=== PATIENT | male | born 1955 | race Caucasian/White ===

== ENCOUNTER 2018-10-01 10:51 | Inpatient (IN) | payer MEDICARE, OTHER ==
--- NOTE | 2018-10-01 11:13 | ED Physician Chart ---
ED Chief Complaint/HPI - Patient Information Date Seen:: 10/01/18 Time Seen:: 11:00 Chief Complaint:: Agitation History of Present Illness:: onset x 2 days of agitation and aggressive behavior; no report of trauma, SIs, H /As, S/T, neck pain, C/P, SOB, Abd. Pain, A/N/V/D/C, fever, chills, or urinary s /s Allergies:: Allergies Allergy/AdvReac Type Severity Reaction Status Date / Time No Known Allergies Allergy Verified 10/01/18 11:03 Historian:: Patient, EMS Review:: Nurse's Note Reviewed, Old Chart Reviewed, EMS run form Reviewed ED Review of Systems - Review of Systems General/Constitutional: No fever, No chills, No weight loss, No weakness, No diaphoresis, No edema, No loss of appetite Skin: No skin lesions, No rash, No bruising Head: No headache, No light-headedness Eyes: No loss of vision, No pain, No diplopia ENT: No earache, No nasal drainage, No sore throat, No tinnitus Neck: No neck pain, No swelling, No thyromegaly, No stiffness, No mass noted Cardio Vascular: No chest pain, No palpitations, No PND, No orthopnea, No edema Pulmonary: No SOB, No cough, No sputum, No wheezing GI: No nausea, No vomiting, No diarrhea, No pain, No melena, No hematochezia, No constipation, No hematemesis G/U: No dysuria, No frequency, No hematuria, No nacturia Musculoskeletal: No bone or joint pain, No back pain, No muscle pain Endocrine: No polyuria, No polydipsia Psychiatric: Prior psych history, Depression, Anxiety, No suicidal ideation, No homicidal ideation, No auditory hallucination, No visual hallucination Hematopoietic: No bruising, No lymphadenopathy Allergic/Immuno: No urticaria, No angioedema Neurological: No syncope, No focal symptoms, No weakness, No paresthesia, No headache, No seizure, No dizziness, No confusion, No vertigo ED Past Medical History - Past Medical History Obtainable: Yes Past Medical History: HTN, DM, Dyslipidemia, PUD/GERD, Thyroid disorder Family History: Diabetes Melitus, HTN Social History: Non Smoker, No Alcohol, No Drug Use, Single, Care Facility Surgical History: None Psychiatricy History: Bipolar Medication: Reviewed ED Physical Exam - Physical Examination General/Constitutional: Awake, Well-developed, well-nourished, Alert, No distress, GCS 15, Non-toxic appearing, Ambulatory Head: Atraumatic Eyes: Lids, conjuctiva normal, PERRL, EOMI Skin: Nl inspection, No rash, No skin lesions, No ecchymosis, Well hydrated, No lymphadenopathy ENMT: External ears, nose nl, TM canals nl, Nasal exam nl, Lips, teeth, gums nl , Oropharynx nl, Tonsils nl Neck: Nontender, Full ROM w/o pain, No JVD, No nuchal rigidity, No bruit, No mass, No stridor Respiratory: Nl effort/Exclusion, Clear to Auscultation, No Wheeze/Rhonchi/Rales Cardio Vascular: RRR, No murmur, gallop, rubs, NL S1 S2, Carotid/Femoral/Distal pulses equal bilaterally GI: No tenderness/rebounding/guarding, No organomegaly, No hernia, Normal BS's, Nondistended, No mass/bruits, No McBurney tenderness : No CVA tenderness Extremities: No tenderness or effusion, Full ROM, normal strength in all extremities, No edema, Normal digits & nails Neuro/Psych: Alert/oriented, DTR's symmetric, Normal sensory exam, Normal motor strength, Judgement/insight normal, Mood normal, Normal gait, No focal deficits Other Neuro/Psych comments:: + Psychomotor Agitation; no SIs; Mood/Affect: Labile Misc: Normal back, No paraspinal tenderness ED Labs/Radiology/EKG Results - Lab Results Comments:: deferred by pt - Radiology Results Comments:: deferred by pt - EKG Interpretations Comments:: deferred by pt ED Septic Shock - . Is Septic Shock (SBP<90, OR Lactate>4 mmol\L) present?: No ED Reassessment (Disposition) - Reassessment Reassessment Condition:: Improved - Diagnosis Diagnosis:: Agitation; Medical Clearance; Psychosis; Bipolar Disorder - Aftercare/Follow up Instructions Aftercare/Follow-Up Instructions:: Counseled pt regarding lab results/diagnosis & need follow up, Counseled pt & family regarding lab results/diagnosis & need follow up - Patient Disposition Discharge/Transfer:: Acute Care w/in this hosp Admitted to:: [facility] Condition at Disposition:: Stable, Improved
[2018-10-01] MEDS ORDERED: Maalox 30 mL Cup PO PRN (12:10)
[2018-10-01] MEDS ORDERED: Magnesium Hydroxide (MOM) 30 mL UDC PO PRN (12:10)
[2018-10-02] MEDS: Levothyroxine 0.1 Mg Tab PO SCH (06:43)
[2018-10-02] MEDS ORDERED: LACTULOSE PO SCH (09:00)
[2018-10-02] MEDS ORDERED: Multivitamin w/ Minerals Tab PO SCH (09:00)
[2018-10-02] MEDS: Multivitamin Tab PO SCH ×2 (10:04→10:40)
[2018-10-02] MEDS: Ferrous Sulfate 325 MG TAB PO SCH ×3 (10:04→17:52)
[2018-10-02] MEDS: Lactulose 10 Gm/15 mL 30mL UDC PO SCH (10:37)
--- NOTE | 2018-10-02 11:55 | Consultation ---
DATE OF CONSULTATION: 10/02/2018 CHIEF COMPLAINT: "They sent me here." HISTORY OF PRESENT ILLNESS: The patient is a 62-year-old male with a history of mental illness who was sent from his usp facility, [facility], was followed by the video game script writer, has been becoming more anxious, guarded, paranoia, thinking that demons are following him. The patient has not been compliant with his medications and is becoming more restless and anxious and becoming more angry and difficult to redirect by staff. PAST PSYCHIATRIC HISTORY: Multiple hospitalizations and history of schizophrenia. PAST MEDICAL HISTORY: Medically cleared in the Emergency Room, has a history of kidney disease, hypothyroidism, and hypertension. PSYCHOSOCIAL HISTORY: The patient resides at [facility] and requires complete care. MENTAL STATUS EXAMINATION: Speech is fluent, loud at times. Affect is dysphoric, irritable. The patient appears to be paranoia, suspicious. The patient denies hearing voices. He is oriented to person being in the hospital and in the hospital, he knows his age, cooperative with the rest of memory testing. The patient's strength is the patient is passively accepting treatment. The patient's weakness is lack of insight. ASSESSMENT: Schizophrenia, paranoia type. MEDICAL: As in medical history. Stressors severe. PLAN: We will admit the patient for hospitalization. We will start to resume group therapy and assess psychopharmacological intervention. ESTIMATED LENGTH OF STAY: 7 days. DISCHARGE CRITERIA: Improved condition. No psychosis, no agitation. Safe disposition, outpatient treatment plan. JOB# [id number]
[2018-10-03] MEDS: Levothyroxine 0.1 Mg Tab PO SCH (06:33)
--- NOTE | 2018-10-03 08:45 | Internal Medicine Prog Note ---
Internal Medicine Subjective - Subjective Patient seen and examined:: chart reviewed Patient is:: awake, other (anxious, paranoid ) Per staff patient has:: no adverse event Internal Medicine Objective - Physical Exam Vitals and I&O: Vital Signs Temp 98.2 F 10/03/18 06:27 Pulse 70 10/03/18 06:27 Resp 20 10/03/18 06:27 BP 122/85 10/03/18 06:27 Pulse Ox 97 10/03/18 06:27 Intake & Output 10/02/18 10/03/18 10/03/18 18:59 06:59 18:59 Intake Total 900 120 Balance 900 120 Intake: Oral 900 120 Other: # Voids 3 2 # Bowel Movements 1 Active Medications: Current Medications Acetaminophen (Tylenol) 650 mg PO Q4HR PRN PRN Reason: Mild Pain / Temp above 100 Stop: 11/30/18 12:09 Al Hydrox/Mg Hydrox/Simethicone (Maalox) 30 ml PO Q4HR PRN PRN Reason: GI DISTRESS Stop: 11/30/18 12:09 Ascorbic Acid (Vitamin C) 500 mg PO DAILY [facility] Stop: 12/01/18 08:59 Last Admin: 10/02/18 10:38 Dose: Not Given Atorvastatin Calcium (Lipitor) 40 mg PO HS [facility] Stop: 12/01/18 20:59 Last Admin: 10/02/18 21:13 Dose: Not Given Carvedilol (Coreg) 12.5 mg PO BID [facility] Stop: 12/01/18 08:59 Last Admin: 10/02/18 17:52 Dose: Not Given Docusate Sodium (Colace) 100 mg PO BID [facility] Stop: 12/01/18 08:59 Last Admin: 10/02/18 17:52 Dose: Not Given Famotidine (Pepcid) 20 mg PO BID [facility] Stop: 12/01/18 08:59 Last Admin: 10/02/18 17:52 Dose: Not Given Ferrous Sulfate (Iron) 325 mg PO BID [facility] Stop: 12/01/18 08:59 Last Admin: 10/02/18 17:52 Dose: Not Given Finasteride (Proscar) 5 mg PO DAILY [facility]; Protocol Stop: 12/01/18 08:59 Last Admin: 10/02/18 10:39 Dose: Not Given Glipizide (Glucotrol) 10 mg PO DAILY [facility] Stop: 12/01/18 08:59 Last Admin: 10/02/18 10:37 Dose: Not Given Lactulose (Cephulac) 40 gm PO DAILY [facility] Stop: 12/01/18 08:59 Last Admin: 10/02/18 10:37 Dose: Not Given Lamotrigine (Lamictal) 100 mg PO HS [facility]; Protocol Stop: 11/30/18 20:59 Last Admin: 10/02/18 21:13 Dose: Not Given Levothyroxine Sodium (Synthroid) 0.1 mg PO QDAC [facility] Stop: 12/01/18 07:29 Last Admin: 10/03/18 06:33 Dose: Not Given Lorazepam (Ativan) 0.5 mg PO Q4HR PRN; Protocol PRN Reason: Anxiety Stop: 11/30/18 12:30 Magnesium Hydroxide (Milk Of Magnesia) 30 ml PO HS PRN PRN Reason: Constipation Multivitamins/Vitamin C (Theragran) 1 tab PO DAILY [facility] Stop: 12/01/18 08:59 Last Admin: 10/02/18 10:40 Dose: Not Given Olanzapine (Zyprexa) 10 mg PO DAILY [facility]; Protocol Stop: 12/01/18 08:59 Last Admin: 10/02/18 10:37 Dose: Not Given Quetiapine Fumarate (Seroquel Xr) 400 mg PO [facility] Stop: 11/30/18 20:59 Last Admin: 10/02/18 21:13 Dose: Not Given Tamsulosin HCl (Flomax) 0.4 mg PO BID [facility] Stop: 12/01/18 08:59 Last Admin: 10/02/18 17:52 Dose: Not Given Trazodone HCl (Desyrel) 50 mg PO [facility]; Protocol Stop: 11/30/18 20:59 Last Admin: 10/02/18 21:13 Dose: Not Given Zolpidem Tartrate (Ambien) 5 mg PO HS PRN PRN Reason: Insomnia Stop: 11/30/18 12:09 General: demented HEENT: NC/AT Neck: Supple Lungs: CTAB, congested Cardiovascular: Normal S1, Normal S2 Abdomen: soft, non-tender Extremities: clear, edema Neurological: no change Internal Medicine Assmt/Plan - Assessment Assessment: schizophrenia paranoia - Plan Plan: as per psych will monitor
[2018-10-03] MEDS: Ferrous Sulfate 325 MG TAB PO SCH ×2 (10:41→17:46)
[2018-10-03] MEDS: Lactulose 10 Gm/15 mL 30mL UDC PO SCH (10:41)
[2018-10-03] MEDS: Multivitamin Tab PO SCH (10:42)
--- NOTE | 2018-10-03 22:58 | Consultation ---
DATE OF CONSULTATION: 10/03/2018 REFERRING PHYSICIAN: Julianna Montano M.D. TYPE OF CONSULTATION: Psychology. HISTORY OF PRESENT ILLNESS: The patient is a 62-year-old male. The following is by review of the medical record as well as by the patient's self-report. According to record, the patient was seen originally by Dr. Castro at the patient's shelter facility. The patient is reported to have been noncompliant with his medications and becoming restless and anxious as well as easily agitated and difficult to redirect. Therefore, he was transferred here to the geropsychiatric unit and recommended for stabilization. Upon interview, the patient presents as guarded as well as anxious. The patient denied any suicidal ideation, plan or intention at the time of the clinical interview. The patient was selectively mute at times and reluctant to answer some of the clinical interview questions. PAST MEDICAL HISTORY: Please see history and physical by Dr. Guan. PAST PSYCHIATRIC HISTORY: The patient has a history of multiple previous psychiatric hospitalizations and a long history of schizophrenia, chronic paranoid type. The patient is under the care of Dr. Castro at his placement. SUBSTANCE ABUSE HISTORY: The patient did not answer these questions. PSYCHOSOCIAL HISTORY: The patient lives at [facility]. The patient did not answer questions about occupational or educational history or oriental orthodox affiliation. The patient did not answer questions about history of physical or sexual abuse or current legal problems. The patient did not answer questions about family involvement in his care or any type of support system other than his medical providers. MENTAL STATUS EXAMINATION: The patient appears to be his stated age. The patient's attitude is guarded. Eye contact is poor. Speech is selectively mute at times and at other times loud. Mood is irritable. Affect is constricted. There seems to be some paranoid ideation. Thought process shows to be somewhat disorganized. The patient denied any auditory or visual hallucinations. The patient denies any suicidal ideation, plan or intention. The patient's behavior has been redirectable on the unit according to the staff. Impulse control is limited. Concentration is poor possibly due to the interference of psychotic process. The patient did not participate in the memory assessment. Sensorium is alert and oriented to person and place. The patient did not participate in the interpretation of proverbs. Insight is poor. Judgment is impaired. DIAGNOSTIC IMPRESSION: AXIS I: History of schizophrenia, chronic paranoid type. AXIS II: Deferred. AXIS III: Per Dr. Guan. TREATMENT PLAN: The patient has been seen by Dr. Castro for psychiatric evaluation and for the management of the patient's psychotropic medications. Please see the initial psychiatric evaluation for pharmacological interventions. We will provide supportive psychotherapy to include reality orientation, differentiation, and integration. We will provide coping strategies for chronic severe mental illness as well as phase of life issues. We will encourage the patient to be able to demonstrate emotional and self-regulation prior to discharge. We will provide motivational enhancement for the patient to become compliant and stay compliant with all aspects of his care and treatment as well as a specific focus on the patient becoming compliant with his medication. We will continue to provide supportive therapy throughout the patient's stay. Thank you, Dr. Castro and Dr. Montano, for this consult and the opportunity to participate in this patient's care. JOB# [id number] [facility]
--- NOTE | 2018-10-04 06:16 | Progress Notes ---
DATE: 10/03/2018 SUBJECTIVE: The patient was seen, remains anxious, irritable, still refusing care at times, refusing medications, said he does not need medications and ____. MENTAL STATUS EXAM: Speech fluent, not pressured. Affect is dysphoric. The patient remains paranoid. Memory, calculation and fund of knowledge remain impaired. ASSESSMENT: The patient still in psychotic phase, highly paranoid. PLAN: Continue stabilization, encourage the patient to comply with treatment. The patient is prescribed Zyprexa. Consider ____. JOB# [id number]
[2018-10-04] MEDS: Levothyroxine 0.1 Mg Tab PO SCH (06:41)
[2018-10-04] MEDS: Lactulose 10 Gm/15 mL 30mL UDC PO SCH (09:44)
[2018-10-04] MEDS: Ferrous Sulfate 325 MG TAB PO SCH ×2 (09:44→16:36)
[2018-10-04] MEDS: Multivitamin Tab PO SCH (09:45)
--- NOTE | 2018-10-04 09:48 | History & Physical ---
ADMIT DATE: 10/01/2018 CHIEF COMPLAINT: Agitation, paranoia and anxiety. HISTORY OF PRESENT ILLNESS: This is a 62-year-old male who was admitted from a halfway facility to [facility] due to increase in agitation, paranoia. REVIEW OF SYSTEMS: GENERAL: This is a 62-year-old male that appears as stated. Denies fever. Denies weakness. EYES: Denies eye pain. Denies blurring vision. NECK: Denies any neck pain. Denies nuchal rigidity. CHEST: Denies chest pain. Denies palpitation. PULMONARY: Denies coughing and shortness of breath. GASTROINTESTINAL: Denies abdominal pain. Denies constipation. Denies diarrhea. MUSCULOSKELETAL: Denies joint pain. Denies muscle pain. SOCIAL HISTORY: The patient lives in a halfway facility prior to hospitalization. FAMILY HISTORY: Unremarkable. PAST SURGICAL HISTORY: Unremarkable. PSYCHIATRIC HISTORY: Includes schizophrenia. PAST MEDICAL HISTORY: Hypertension, hyperlipidemia, gastroesophageal reflux disease, benign prostatic hypertrophy, iron deficiency anemia, diabetes mellitus. PHYSICAL EXAMINATION: VITAL SIGNS: Temperature 97.8, heart rate 74, blood pressure 134/64, respirations 20, 97% on room air. GENERAL: This is a 62-year-old male that appears as stated in no acute distress. HEENT: Head is atraumatic and normocephalic. Eyes: Bilateral conjunctivae are clear. Bilateral pupils are equally round and reactive. NECK: Supple. No JVD. CARDIOVASCULAR: S1 and S2, without murmur. PULMONARY: Clear to auscultation. GASTROINTESTINAL: Soft and nontender without guarding. Positive bowel sounds. MUSCULOSKELETAL: No clubbing. No cyanosis noted. ASSESSMENT: 1. Paranoid schizophrenia. 2. Hyperlipidemia. 3. Hypertension. 4. Gastroesophageal reflux disease. 5. Iron deficiency anemia. 6. Benign prostatic hypertrophy. 7. Diabetes mellitus. 8. Hypothyroidism. PLAN: We will admit the patient to Psychiatric Unit. We will follow up with the psychiatrist to monitor the patient's condition and behavior. We will do medication reconciliation accordingly. Treatment plans were discussed with the patient's nurse. Treatment plans were discussed with Dr. Guan. JOB# [id number]
--- NOTE | 2018-10-04 18:42 | Progress Notes ---
DATE: 10/04/2018 TIME: 10:00 a.m. CHIEF COMPLAINT: Psychotic illness. SUBJECTIVE: The patient was seen, remains anxious, guarded, still argumentative, refusing medications. MENTAL STATUS EXAM: Speech is minimal, short sentences. Affect is constricted. The patient remains paranoid, still responding to internal stimuli. He is oriented to time, place and person. ASSESSMENT: The patient in psychotic phase. PLAN: Continue stabilization. Encourage the patient to comply with treatment. The patient is on Zyprexa. The patient states he does not take it because he does not need any medication or he does not do anything. Consider Riese process. Discontinue Zyprexa, use Haldol 2.5 mg p.o. b.i.d., Cogentin 1 mg p.o. b.i.d. JOB# [id number]
[2018-10-05] MEDS: Levothyroxine 0.1 Mg Tab PO SCH (06:35)
[2018-10-05] MEDS: Ferrous Sulfate 325 MG TAB PO SCH ×2 (09:21→17:20)
[2018-10-05] MEDS: Multivitamin Tab PO SCH (09:22)
[2018-10-05] MEDS: Lactulose 10 Gm/15 mL 30mL UDC PO SCH (09:22)
--- NOTE | 2018-10-05 11:29 | Internal Medicine Prog Note ---
Internal Medicine Subjective - Subjective Patient seen and examined:: chart reviewed Patient is:: awake, other (anxious, paranoid , no signs of pain ) Per staff patient has:: no adverse event Internal Medicine Objective - Physical Exam Vitals and I&O: Vital Signs Temp 97.9 F 10/04/18 20:58 Pulse 98 10/04/18 20:58 Resp 20 10/04/18 20:58 BP 159/82 10/04/18 20:58 Pulse Ox 98 10/04/18 20:58 Intake & Output 10/04/18 10/05/18 10/05/18 18:59 06:59 18:59 Intake Total 1500 480 Balance 1500 480 Intake: Oral 1500 480 Other: # Voids 2 3 # Bowel Movements 0 Active Medications: Current Medications Acetaminophen (Tylenol) 650 mg PO Q4HR PRN PRN Reason: Mild Pain / Temp above 100 Stop: 11/30/18 12:09 Al Hydrox/Mg Hydrox/Simethicone (Maalox) 30 ml PO Q4HR PRN PRN Reason: GI DISTRESS Stop: 11/30/18 12:09 Ascorbic Acid (Vitamin C) 500 mg PO DAILY [facility] Stop: 12/01/18 08:59 Last Admin: 10/05/18 09:21 Dose: Not Given Atorvastatin Calcium (Lipitor) 40 mg PO HS [facility] Stop: 12/01/18 20:59 Last Admin: 10/04/18 20:44 Dose: Not Given Benztropine Mesylate (Cogentin) 1 mg PO BID [facility] Stop: 12/03/18 16:59 Last Admin: 10/05/18 09:21 Dose: Not Given Carvedilol (Coreg) 12.5 mg PO BID [facility] Stop: 12/01/18 08:59 Last Admin: 10/05/18 09:21 Dose: Not Given Docusate Sodium (Colace) 100 mg PO BID [facility] Stop: 12/01/18 08:59 Last Admin: 10/05/18 09:21 Dose: Not Given Famotidine (Pepcid) 20 mg PO BID [facility] Stop: 12/01/18 08:59 Last Admin: 10/05/18 09:21 Dose: Not Given Ferrous Sulfate (Iron) 325 mg PO BID [facility] Stop: 12/01/18 08:59 Last Admin: 10/05/18 09:21 Dose: Not Given Finasteride (Proscar) 5 mg PO DAILY [facility]; Protocol Stop: 12/01/18 08:59 Last Admin: 10/05/18 09:21 Dose: Not Given Glipizide (Glucotrol) 10 mg PO DAILY [facility] Stop: 12/01/18 08:59 Last Admin: 10/05/18 09:22 Dose: Not Given Haloperidol (Haldol) 2.5 mg PO BID [facility]; Protocol Stop: 12/03/18 16:59 Last Admin: 10/05/18 09:22 Dose: Not Given Lactulose (Cephulac) 40 gm PO DAILY [facility] Stop: 12/01/18 08:59 Last Admin: 10/05/18 09:22 Dose: Not Given Lamotrigine (Lamictal) 100 mg PO HS [facility]; Protocol Stop: 11/30/18 20:59 Last Admin: 10/04/18 20:44 Dose: Not Given Levothyroxine Sodium (Synthroid) 0.1 mg PO QDAC [facility] Stop: 12/01/18 07:29 Last Admin: 10/05/18 06:35 Dose: Not Given Lorazepam (Ativan) 0.5 mg PO Q4HR PRN; Protocol PRN Reason: Anxiety Stop: 11/30/18 12:30 Magnesium Hydroxide (Milk Of Magnesia) 30 ml PO HS PRN PRN Reason: Constipation Multivitamins/Vitamin C (Theragran) 1 tab PO DAILY [facility] Stop: 12/01/18 08:59 Last Admin: 10/05/18 09:22 Dose: Not Given Tamsulosin HCl (Flomax) 0.4 mg PO BID [facility] Stop: 12/01/18 08:59 Last Admin: 10/05/18 09:22 Dose: Not Given Trazodone HCl (Desyrel) 50 mg PO HS [facility]; Protocol Stop: 11/30/18 20:59 Last Admin: 10/04/18 20:44 Dose: Not Given Zolpidem Tartrate (Ambien) 5 mg PO HS PRN PRN Reason: Insomnia Stop: 11/30/18 12:09 General: demented HEENT: NC/AT Neck: Supple Lungs: CTAB, congested Cardiovascular: Normal S1, Normal S2 Abdomen: soft, non-tender Extremities: clear, edema Neurological: no change Internal Medicine Assmt/Plan - Assessment Assessment: schizophrenia paranoia - Plan Plan: as per psych will monitor Nutritional Asmnt/Malnutr-PDOC - Dietary Evaluation Malnutrition Findings (Please click <Entered> for more info): Nutritional Asmnt/Malnutrition Start: 10/03/18 10: 52 Text: Status: Complete Freq: Protocol: Document 10/04/18 11:05 LEONEL (Rec: 10/04/18 11:21 LEONEL SHORTN- [email or web address]) Nutritional Asmnt/Malnutrition Patient General Information Diagnosis psychosis nos Pertinent Medical Hx/Surgical Hx schizophrenia Subjective Information Pt asleep at time of visit Current Diet Order/ Nutrition Support renal and cardiac mechanical soft diet Pertinent Medications maalox, vit C, lipitor, colace , pepcid, Fe, gluctrol, lactulose, synthroid, MOM, theragran Pertinent Labs none note Nutritional Hx/Data Height 1.63 m Height (Calculated Centimeters) 162.6 Current Weight (lbs) 145.15 kg Weight (Calculated Kilograms) 145.1 Weight (Calculated Grams) 016036.6 Body Mass Index (BMI) 54.9 Weight Status Obese GI Symptoms GI Symptoms None Last BM 10/03 Cultural/Ethnic/Roman Catholic Belief unknown Usual diet at home unknown Skin Integrity/Comment: wilda score 22 Current %PO Good (75-100%) Estimated Nutritional Goals BEE in Kcals: Adj wt of IBW Calories/Kcals/Kg 25-30kcals/kg Kcals Calculated 1925-2310kcals/day Protein: Adj wt of IBW Protein g/k.2-1.3g/kg Protein Calculated 92-100g/day Fluid: ml 1925-2310ml/day (1ml/kcal) Nutritional Problem 1. Problem Problem No nutrition diagnosis at this time Intervention/Recommendation Comments Recommend continuing renal and cardiac mechanical soft diet Expected Outcomes/Goals Expected Outcomes/Goals PO intake >75% of meals
[2018-10-05] MEDS ORDERED: Haloperidol Lactate 5 mg/mL 1mL Vial IM ONE (14:08)
[2018-10-05] MEDS ORDERED: Haloperidol Lactate 5 mg/mL 1mL Vial ONE (14:10)
--- NOTE | 2018-10-06 04:18 | Progress Notes ---
DATE: 10/05/2018 PSYCHIATRIC PROGRESS NOTE SUBJECTIVE: Staff was spoken to. The patient is very agitated and pacing most of the time on the unit, but at the same time refusing to comply with the treatment. Insight and judgment at this time are noted to be still impaired. Impulse control is noted to be limited. The patient has been very intrusive. The patient has been advised to be on the current medications and refuses. The patient has been given the option of taking the antianxiety medication such as Ativan or Xanax, but the patient refuses to do so. ASSESSMENT: The patient is still impulsive and agitated. PLAN: To encourage the patient to continue with the medications and the patient continues to do so. The patient is going to be possibly placed on the Riese hearing tomorrow. JOB# [id number]
[2018-10-06] MEDS: Levothyroxine 0.1 Mg Tab PO SCH (07:04)
[2018-10-06] MEDS: Multivitamin Tab PO SCH (08:20)
[2018-10-06] MEDS: Ferrous Sulfate 325 MG TAB PO SCH ×2 (08:20→17:32)
[2018-10-06] MEDS: Lactulose 10 Gm/15 mL 30mL UDC PO SCH (08:20)
[2018-10-06] MEDS ORDERED: Haloperidol Lactate 5 mg/mL 1mL Vial ONE (13:12)
[2018-10-06] MEDS ORDERED: Haloperidol Lactate 5 mg/mL 1mL Vial IM ONE (13:18)
--- NOTE | 2018-10-07 02:45 | Progress Notes ---
DATE: 10/06/2018 PSYCHIATRIC PROGRESS NOTE SUBJECTIVE: Staff was spoken to. The patient is interviewed. Mood is noted to be irritable. Affect is constricted. Insight and judgment are noted to be still impaired. Impulse control is noted to be poor. Coping skills are also noted to be very poor. The patient has been having difficult time to cope with the stress. The patient has been out of control and has to be given a dose of the Haldol. The patient started to comply with the treatment. ASSESSMENT: The patient is still impulsive and psychotic. PLAN: To continue the patient with the Haldol, which is going to be increased to 5 mg twice a day and followed up with the supportive therapy. JOB# [id number]
[2018-10-07] MEDS: Levothyroxine 0.1 Mg Tab PO SCH (06:36)
[2018-10-07] MEDS: Lactulose 10 Gm/15 mL 30mL UDC PO SCH (08:57)
[2018-10-07] MEDS: Ferrous Sulfate 325 MG TAB PO SCH ×2 (08:57→17:53)
[2018-10-07] MEDS: Multivitamin Tab PO SCH (08:57)
--- NOTE | 2018-10-07 14:01 | Internal Medicine Prog Note ---
Internal Medicine Subjective - Subjective Service Date: 10/07/18 Patient is:: awake, other (anxious, paranoid , no signs of pain ) Per staff patient has:: no adverse event Internal Medicine Objective - Physical Exam Vitals and I&O: Vital Signs Temp 0 F 10/07/18 06:37 Pulse 82 10/06/18 17:30 Resp 20 10/06/18 14:00 BP 138/76 10/06/18 17:30 Pulse Ox 98 10/06/18 14:00 Intake & Output 10/06/18 10/07/18 10/07/18 18:59 06:59 18:59 Intake Total 950 240 Balance 950 240 Weight (lbs) 320 lb Intake: Oral 950 240 Other: # Voids 4 3 # Bowel Movements 1 0 Weight Source Bedscale Active Medications: Current Medications Acetaminophen (Tylenol) 650 mg PO Q4HR PRN PRN Reason: Mild Pain / Temp above 100 Stop: 11/30/18 12:09 Last Admin: 10/07/18 13:16 Dose: 650 mg Al Hydrox/Mg Hydrox/Simethicone (Maalox) 30 ml PO Q4HR PRN PRN Reason: GI DISTRESS Stop: 11/30/18 12:09 Ascorbic Acid (Vitamin C) 500 mg PO DAILY [facility] Stop: 12/01/18 08:59 Last Admin: 10/07/18 08:56 Dose: Not Given Atorvastatin Calcium (Lipitor) 40 mg PO HS [facility] Stop: 12/01/18 20:59 Last Admin: 10/06/18 21:21 Dose: Not Given Benztropine Mesylate (Cogentin) 0.5 mg PO BID [facility] Stop: 12/06/18 08:59 Last Admin: 10/07/18 08:56 Dose: Not Given Carvedilol (Coreg) 12.5 mg PO BID [facility] Stop: 12/01/18 08:59 Last Admin: 10/07/18 08:56 Dose: Not Given Docusate Sodium (Colace) 100 mg PO BID [facility] Stop: 12/01/18 08:59 Last Admin: 10/07/18 08:56 Dose: Not Given Famotidine (Pepcid) 20 mg PO BID [facility] Stop: 12/01/18 08:59 Last Admin: 10/07/18 08:56 Dose: Not Given Ferrous Sulfate (Iron) 325 mg PO BID [facility] Stop: 12/01/18 08:59 Last Admin: 10/07/18 08:57 Dose: Not Given Finasteride (Proscar) 5 mg PO DAILY [facility]; Protocol Stop: 12/01/18 08:59 Last Admin: 10/07/18 08:57 Dose: Not Given Glipizide (Glucotrol) 10 mg PO DAILY [facility] Stop: 12/01/18 08:59 Last Admin: 10/07/18 08:57 Dose: Not Given Haloperidol (Haldol) 5 mg PO BID [facility]; Protocol Stop: 12/06/18 08:59 Lactulose (Cephulac) 40 gm PO DAILY [facility] Stop: 12/01/18 08:59 Last Admin: 10/07/18 08:57 Dose: Not Given Lamotrigine (Lamictal) 100 mg PO HS [facility]; Protocol Stop: 11/30/18 20:59 Last Admin: 10/06/18 21:22 Dose: Not Given Levothyroxine Sodium (Synthroid) 0.1 mg PO QDAC [facility] Stop: 12/01/18 07:29 Last Admin: 10/07/18 06:36 Dose: Not Given Lorazepam (Ativan) 0.5 mg PO Q4HR PRN; Protocol PRN Reason: Anxiety Stop: 11/30/18 12:30 Last Admin: 10/07/18 13:16 Dose: 0.5 mg Magnesium Hydroxide (Milk Of Magnesia) 30 ml PO HS PRN PRN Reason: Constipation Multivitamins/Vitamin C (Theragran) 1 tab PO DAILY [facility] Stop: 12/01/18 08:59 Last Admin: 10/07/18 08:57 Dose: Not Given Tamsulosin HCl (Flomax) 0.4 mg PO BID [facility] Stop: 12/01/18 08:59 Last Admin: 10/07/18 08:57 Dose: Not Given Trazodone HCl (Desyrel) 50 mg PO HS [facility]; Protocol Stop: 11/30/18 20:59 Last Admin: 10/06/18 21:22 Dose: Not Given Zolpidem Tartrate (Ambien) 5 mg PO HS PRN PRN Reason: Insomnia Stop: 11/30/18 12:09 General: demented HEENT: NC/AT Neck: Supple Lungs: CTAB, congested Cardiovascular: Normal S1, Normal S2 Abdomen: soft, non-tender Extremities: clear, edema Neurological: no change Internal Medicine Assmt/Plan - Assessment Assessment: schizophrenia paranoia - Plan Plan: cpm Nutritional Asmnt/Malnutr-PDOC - Dietary Evaluation Malnutrition Findings (Please click <Entered> for more info): Nutritional Asmnt/Malnutrition Start: 10/03/18 10: 52 Text: Status: Complete Freq: Protocol: Document 10/04/18 11:05 PARAMOMID (Rec: 10/04/18 11:21 PARAMOMID MIGUELITO- FNS1) Nutritional Asmnt/Malnutrition Patient General Information Diagnosis psychosis nos Pertinent Medical Hx/Surgical Hx schizophrenia Subjective Information Pt asleep at time of visit Current Diet Order/ Nutrition Support renal and cardiac mechanical soft diet Pertinent Medications maalox, vit C, lipitor, colace , pepcid, Fe, gluctrol, lactulose, synthroid, MOM, theragran Pertinent Labs none note Nutritional Hx/Data Height 5 ft 4 in Height (Calculated Centimeters) 162.6 Current Weight (lbs) 320 lb Weight (Calculated Kilograms) 145.1 Weight (Calculated Grams) 182843.6 Body Mass Index (BMI) 54.9 Weight Status Obese GI Symptoms GI Symptoms None Last BM 10/03 Cultural/Ethnic/Adventist Belief unknown Usual diet at home unknown Skin Integrity/Comment: wilda score 22 Current %PO Good (75-100%) Estimated Nutritional Goals BEE in Kcals: Adj wt of IBW Calories/Kcals/Kg 25-30kcals/kg Kcals Calculated 1925-2310kcals/day Protein: Adj wt of IBW Protein g/k.2-1.3g/kg Protein Calculated 92-100g/day Fluid: ml 1925-2310ml/day (1ml/kcal) Nutritional Problem 1. Problem Problem No nutrition diagnosis at this time Intervention/Recommendation Comments Recommend continuing renal and cardiac mechanical soft diet Expected Outcomes/Goals Expected Outcomes/Goals PO intake >75% of meals
--- NOTE | 2018-10-08 05:21 | Progress Notes ---
DATE: 10/07/2018 PSYCHIATRIC PROGRESS NOTE SUBJECTIVE: Staff was spoken to. The patient is interviewed. Mood is noted to be irritable. Affect is constricted. Coping skills are noted to be very poor. Insight and judgment are also noted to be still impaired. The patient's sexualized behavior and aggressive behavior has been coming down. No side effects to the medications are noted. ASSESSMENT: The patient is still psychotic and impulsive. PLAN: To continue the patient with the current medications and followup. JOB# [id number]
[2018-10-08] MEDS: Levothyroxine 0.1 Mg Tab PO SCH (06:51)
[2018-10-08] MEDS: Multivitamin Tab PO SCH (08:52)
[2018-10-08] MEDS: Ferrous Sulfate 325 MG TAB PO SCH ×2 (08:55→17:25)
[2018-10-08] MEDS: Lactulose 10 Gm/15 mL 30mL UDC PO SCH (08:55)
--- NOTE | 2018-10-08 14:48 | Internal Medicine Prog Note ---
Internal Medicine Subjective - Subjective Service Date: 10/08/18 Patient is:: awake, other (anxious, paranoid , no signs of pain ) Per staff patient has:: no adverse event Internal Medicine Objective - Physical Exam Vitals and I&O: Vital Signs Temp 97.6 F 10/07/18 20:41 Pulse 78 10/07/18 20:41 Resp 20 10/07/18 20:41 BP 118/65 10/07/18 20:41 Pulse Ox 96 10/07/18 20:41 Intake & Output 10/07/18 10/08/18 10/08/18 18:59 06:59 18:59 Intake Total 420 Balance 420 Weight (lbs) 320 lb Intake: Oral 420 Other: # Voids 2 1 # Bowel Movements 0 0 Weight Source Bedscale Active Medications: Current Medications Acetaminophen (Tylenol) 650 mg PO Q4HR PRN PRN Reason: Mild Pain / Temp above 100 Stop: 11/30/18 12:09 Last Admin: 10/07/18 13:16 Dose: 650 mg Al Hydrox/Mg Hydrox/Simethicone (Maalox) 30 ml PO Q4HR PRN PRN Reason: GI DISTRESS Stop: 11/30/18 12:09 Ascorbic Acid (Vitamin C) 500 mg PO DAILY [facility] Stop: 12/01/18 08:59 Last Admin: 10/08/18 08:52 Dose: 500 mg Atorvastatin Calcium (Lipitor) 40 mg PO HS [facility] Stop: 12/01/18 20:59 Last Admin: 10/07/18 20:21 Dose: 40 mg Benztropine Mesylate (Cogentin) 0.5 mg PO BID [facility] Stop: 12/06/18 08:59 Last Admin: 10/08/18 08:55 Dose: 0.5 mg Carvedilol (Coreg) 12.5 mg PO BID [facility] Stop: 12/01/18 08:59 Last Admin: 10/08/18 08:54 Dose: Not Given Docusate Sodium (Colace) 100 mg PO BID [facility] Stop: 12/01/18 08:59 Last Admin: 10/08/18 08:52 Dose: 100 mg Famotidine (Pepcid) 20 mg PO BID [facility] Stop: 12/01/18 08:59 Last Admin: 10/08/18 08:53 Dose: 20 mg Ferrous Sulfate (Iron) 325 mg PO BID [facility] Stop: 12/01/18 08:59 Last Admin: 10/08/18 08:55 Dose: 325 mg Finasteride (Proscar) 5 mg PO DAILY [facility]; Protocol Stop: 12/01/18 08:59 Last Admin: 10/08/18 08:51 Dose: 5 mg Glipizide (Glucotrol) 10 mg PO DAILY [facility] Stop: 12/01/18 08:59 Last Admin: 10/08/18 08:51 Dose: 10 mg Haloperidol (Haldol) 5 mg PO BID [facility]; Protocol Stop: 12/06/18 08:59 Lactulose (Cephulac) 40 gm PO DAILY [facility] Stop: 12/01/18 08:59 Last Admin: 10/08/18 08:55 Dose: Not Given Lamotrigine (Lamictal) 100 mg PO HS [facility]; Protocol Stop: 11/30/18 20:59 Last Admin: 10/07/18 20:20 Dose: 100 mg Levothyroxine Sodium (Synthroid) 0.1 mg PO QDAC [facility] Stop: 12/01/18 07:29 Last Admin: 10/08/18 06:51 Dose: Not Given Lorazepam (Ativan) 0.5 mg PO Q4HR PRN; Protocol PRN Reason: Anxiety Stop: 11/30/18 12:30 Last Admin: 10/07/18 13:16 Dose: 0.5 mg Magnesium Hydroxide (Milk Of Magnesia) 30 ml PO HS PRN PRN Reason: Constipation Multivitamins/Vitamin C (Theragran) 1 tab PO DAILY [facility] Stop: 12/01/18 08:59 Last Admin: 10/08/18 08:52 Dose: 1 tab Tamsulosin HCl (Flomax) 0.4 mg PO BID [facility] Stop: 12/01/18 08:59 Last Admin: 10/08/18 08:55 Dose: 0.4 mg Trazodone HCl (Desyrel) 50 mg PO HS [facility]; Protocol Stop: 11/30/18 20:59 Last Admin: 10/07/18 20:20 Dose: 50 mg Zolpidem Tartrate (Ambien) 5 mg PO HS PRN PRN Reason: Insomnia Stop: 11/30/18 12:09 General: demented HEENT: NC/AT Neck: Supple Lungs: CTAB, congested Cardiovascular: Normal S1, Normal S2 Abdomen: soft, non-tender Extremities: clear, edema Neurological: no change Internal Medicine Assmt/Plan - Assessment Assessment: schizophrenia paranoia - Plan Plan: cpm Nutritional Asmnt/Malnutr-PDOC - Dietary Evaluation Malnutrition Findings (Please click <Entered> for more info): Nutritional Asmnt/Malnutrition Start: 10/03/18 10: 52 Text: Status: Complete Freq: Protocol: Document 10/04/18 11:05 ISAACKATHERINE (Rec: 10/04/18 11:21 PARAMOMID SHORTN- FNS1) Nutritional Asmnt/Malnutrition Patient General Information Diagnosis psychosis nos Pertinent Medical Hx/Surgical Hx schizophrenia Subjective Information Pt asleep at time of visit Current Diet Order/ Nutrition Support renal and cardiac mechanical soft diet Pertinent Medications maalox, vit C, lipitor, colace , pepcid, Fe, gluctrol, lactulose, synthroid, MOM, theragran Pertinent Labs none note Nutritional Hx/Data Height 5 ft 4 in Height (Calculated Centimeters) 162.6 Current Weight (lbs) 320 lb Weight (Calculated Kilograms) 145.1 Weight (Calculated Grams) 987179.6 Body Mass Index (BMI) 54.9 Weight Status Obese GI Symptoms GI Symptoms None Last BM 10/03 Cultural/Ethnic/Orthodoxy Belief unknown Usual diet at home unknown Skin Integrity/Comment: wilda score 22 Current %PO Good (75-100%) Estimated Nutritional Goals BEE in Kcals: Adj wt of IBW Calories/Kcals/Kg 25-30kcals/kg Kcals Calculated 1925-2310kcals/day Protein: Adj wt of IBW Protein g/k.2-1.3g/kg Protein Calculated 92-100g/day Fluid: ml 1925-2310ml/day (1ml/kcal) Nutritional Problem 1. Problem Problem No nutrition diagnosis at this time Intervention/Recommendation Comments Recommend continuing renal and cardiac mechanical soft diet Expected Outcomes/Goals Expected Outcomes/Goals PO intake >75% of meals
--- NOTE | 2018-10-09 02:38 | Progress Notes ---
DATE: 10/08/2018 SUBJECTIVE: Staff was spoken to. The patient is interviewed. Mood is noted to be irritable. Affect is constricted. Insight and judgment are noted to be still impaired. Impulse control is noted to be poor. Coping skills are noted to be very poor. The patient has been having difficult time to cope with the stress. The patient is currently able to tolerate the medication. The patient has been on 5 mg twice a day Haldol and Lamictal 100 mg at bedtime. The patient's mood swings are coming under control. ASSESSMENT: The patient is less irritable today. PLAN: To continue the patient with the current medications and encourage the patient to verbalize the concerns rather than to act out. [facility]# [id number]
[2018-10-09] MEDS: Levothyroxine 0.1 Mg Tab PO SCH (06:45)
[2018-10-09] MEDS: Ferrous Sulfate 325 MG TAB PO SCH (09:42)
[2018-10-09] MEDS: Multivitamin Tab PO SCH (09:42)
[2018-10-09] MEDS: Lactulose 10 Gm/15 mL 30mL UDC PO SCH (09:42)
--- NOTE | 2018-10-09 15:14 | Progress Notes ---
DATE: 10/09/2018 SUBJECTIVE: Staff was spoken to. The patient is interviewed. Mood is noted to be less irritable. Affect is appropriate. Not suicidal or homicidal today, but the patient has been having difficult time to accept the medications as ordered. No side effects to the medications are noted at this time. The patient has been willing to comply with the treatment. ASSESSMENT: The patient's mood swings are coming under control. PLAN: If the placement is available, possibly the patient is going to be discharged for followup on outpatient basis. JOB# [id number]
--- NOTE | 2018-10-10 10:02 | Progress Notes ---
DATE: 10/09/2018 PROGRESS AND DISCHARGE NOTE SUBJECTIVE: The patient presents as less irritable. The patient denied any suicidal ideation, plan or intention. The patient is compliant with the medications, however verbalizes reluctance to take them. We provided positive reinforcement for the patient to stay compliant with all aspects of his care and treatment. OBJECTIVE: Mood fluctuations have decreased. Affect, mood congruent. Thought process is concrete. The patient denied any auditory or visual hallucinations. The patient denies any suicidal ideation, plan or intention. The patient's behavior has been more redirectable and compliant with his treatment. ASSESSMENT: History of schizophrenia, chronic paranoid type, approaching baseline. TREATMENT PLAN: The patient will be followed by Psychiatry and Psychology at his placement. Records indicate the patient is under the care of Dr. Castro. The patient was provided with review of coping strategies for phase of life issues as well as for chronic long-term severe mental illness. We provided the patient with remotivation for the patient to stay compliant with all aspects of his care and treatment. Thank you Dr. Castro and Dr. Montano for this consult and the opportunity to participate in this patient's care. JOB# [id number] MYAH
== END 2018-10-09 15:15 | DRG 885 ==
LOC: ER 10:51 → GERO 11:54
PROVIDERS: ADMIT Psychiatry & Neurology Psychiatry; ATTEND Psychiatry & Neurology Psychiatry
DX: F20.0 Paranoid schizophrenia (principal); I10 Essential (primary) hypertension; E78.5 Hyperlipidemia, unspecified; K21.9 Gastro-esophageal reflux disease without esophagitis; N40.0 Benign prostatic hyperplasia without lower urinary tract symptoms; D50.9 Iron deficiency anemia, unspecified; F29 Unspecified psychosis not due to a substance or known physiological condition; E03.9 Hypothyroidism, unspecified; E11.9 Type 2 diabetes mellitus without complications; Z83.3 Family history of diabetes mellitus; Z82.49 Family history of ischemic heart disease and other diseases of the circulatory system
CPT/HCPCS: J1200; J1630; J2060; Z7610